=== PATIENT | female | born 1990 | race Caucasian/White ===

== ENCOUNTER 2016-08-12 22:08 | Emergency (ER) | payer OTHER ==
[~2016-08-12 22:08] MED LIST: ATORVASTATIN CA40 M1; METFORMIN HCL500 MG PO; QUETIAPINE FUMA25 M1 PO
[2016-08-13 01:23] VITALS: BP 138/98
== END 2016-08-13 01:23 | disposition home or self-care (01) ==
LOC: ED 22:08 → EDBD 22:08 → ED 08-13 01:23
DX: F41.0 Panic disorder [episodic paroxysmal anxiety] (principal); F22 Delusional disorders; F31.9 Bipolar disorder, unspecified

== ENCOUNTER 2016-09-11 23:57 | Emergency (ER) | payer OTHER ==
[2016-09-12 00:52] LABS: BASOPHIL % 0.3 % (0-2); PLATELET COUNT 310 x10^3mcL (130-400); RED CELL DISTRIBUTION WIDTH 14.1 % (11.5-14.5)
[2016-09-12 00:59] LABS: CALCIUM 9.2 mg/dL (8.5-10.1); CARBON DIOXIDE 27.8 mmol/L (21-32); CHLORIDE SERUM 104 mmol/L (98-107); CREATININE SERUM 0.6 mg/dL (0.6-1.0); GFR1 > 60 mL/min; GLUCOSE SERUM 91 mg/dL (74-106); POTASSIUM SERUM 3.6 mmol/L (3.5-5.1); SODIUM SERUM 143 mmol/L (136-145)
[2016-09-12 01:04] LABS: ALBUMIN 4.5 g/dL (3.4-5.0); ALKALINE PHOSPHATASE 68 U/L (46-116); ALT/SGPT 85 U/L (14-59); AST/SGOT 29 U/L (15-37); BILIRUBIN TOTAL 0.53 mg/dL (0.20-1.00); TOTAL PROTEIN, SERUM 7.8 g/dL (6.4-8.2)
[2016-09-12 01:50] LABS: UA SPECIFIC GRAVITY 1.015 (1.005-1.035); microscopic required? YES; urine erythrocyte TRACE (NEGATIVE)
[2016-09-12 02:32] VITALS: BP 137/96
== END 2016-09-12 02:32 | disposition home or self-care (01) ==
LOC: ED 23:57
PROVIDERS: Emergency Medicine
DX: N93.8 Other specified abnormal uterine and vaginal bleeding (principal); F31.9 Bipolar disorder, unspecified
CPT/HCPCS: 87491; 87591

== ENCOUNTER 2016-10-21 01:03 | Emergency (ER) | payer OTHER ==
[2016-10-21 01:26] VITALS: BP 129/94
[2016-10-21 02:21] LABS: BASOPHIL % 0.3 % (0-2); PLATELET COUNT 323 x10^3mcL (130-400); RED CELL DISTRIBUTION WIDTH 13.8 % (11.5-14.5)
[2016-10-21 02:23] LABS: CARBON DIOXIDE 20.6 mmol/L (21-32); CHLORIDE SERUM 99 mmol/L (98-107); CREATININE SERUM 0.5 mg/dL (0.6-1.0); GFR1 > 60 mL/min; GLUCOSE SERUM 73 mg/dL (74-106); POTASSIUM SERUM 4.9 mmol/L (3.5-5.1); SODIUM SERUM 135 mmol/L (136-145)
[2016-10-21 02:27] LABS: ALBUMIN 4.7 g/dL (3.4-5.0); ALKALINE PHOSPHATASE 91 U/L (46-116); ALT/SGPT 67 U/L (14-59); AST/SGOT 55 U/L (15-37)
[2016-10-21 02:31] LABS: AMPHETAMINE QUAL UR POSITIVE (NEG <=1000)
[2016-10-21 02:38] LABS: TOTAL PROTEIN, SERUM 8.8 g/dL (6.4-8.2)
[2016-10-21 02:45] LABS: CALCIUM 9.9 mg/dL (8.5-10.1)
== END 2016-10-21 05:48 | disposition home or self-care (01) ==
LOC: ED 01:03
PROVIDERS: Emergency Medicine
DX: F15.10 Other stimulant abuse, uncomplicated (principal); F31.9 Bipolar disorder, unspecified
CPT/HCPCS: G0480; J2060; J7030

== ENCOUNTER 2016-11-01 13:56 | Emergency (ER) | payer OTHER ==
[~2016-11-01] VITALS: Ht 144.8 cm; Wt 52.8 kg
[2016-11-01 14:01] VITALS: BP 131/96
== END 2016-11-01 15:38 | disposition home or self-care (01) ==
LOC: ED 13:56
DX: F41.9 Anxiety disorder, unspecified (principal)

== ENCOUNTER 2016-11-01 19:51 | Emergency (ER) | payer OTHER ==
[2016-11-01 20:46] LABS: BASOPHIL % 0.4 % (0-2); PLATELET COUNT 287 x10^3mcL (130-400); RED CELL DISTRIBUTION WIDTH 13.4 % (11.5-14.5)
[2016-11-01 20:56] LABS: CALCIUM 9.9 mg/dL (8.5-10.1); CHLORIDE SERUM 101 mmol/L (98-107); CREATININE SERUM 0.9 mg/dL (0.6-1.0); GFR1 > 60 mL/min; GLUCOSE SERUM 83 mg/dL (74-106); POTASSIUM SERUM 3.3 mmol/L (3.5-5.1); SODIUM SERUM 138 mmol/L (136-145)
[2016-11-01 21:00] LABS: ALBUMIN 4.4 g/dL (3.4-5.0); ALKALINE PHOSPHATASE 86 U/L (46-116); ALT/SGPT 183 U/L (14-59); AST/SGOT 122 U/L (15-37); BILIRUBIN TOTAL 0.49 mg/dL (0.20-1.00)
[2016-11-01 21:17] LABS: TOTAL PROTEIN, SERUM 8.6 g/dL (6.4-8.2)
[2016-11-01 21:41] VITALS: BP 130/79
== END 2016-11-01 21:41 | disposition home or self-care (01) ==
LOC: ED 19:51
PROVIDERS: Emergency Medicine
DX: F41.9 Anxiety disorder, unspecified (principal); F15.10 Other stimulant abuse, uncomplicated; F31.9 Bipolar disorder, unspecified
CPT/HCPCS: 36415

== ENCOUNTER 2016-11-26 21:52 | Emergency (ER) | payer OTHER ==
[2016-11-26 22:39] LABS: BASOPHIL % 0.3 % (0-2); PLATELET COUNT 287 x10^3mcL (130-400); RED CELL DISTRIBUTION WIDTH 13.9 % (11.5-14.5)
[2016-11-26 22:41] LABS: CALCIUM 10.1 mg/dL (8.5-10.1); CARBON DIOXIDE 20.2 mmol/L (21-32); CREATININE SERUM 1.2 mg/dL (0.6-1.0); POTASSIUM SERUM 3.6 mmol/L (3.5-5.1)
[2016-11-26 22:52] LABS: ALBUMIN 5.1 g/dL (3.4-5.0); BILIRUBIN TOTAL 1.5 mg/dL (0.20-1.00); TOTAL PROTEIN, SERUM 8.9 g/dL (6.4-8.2)
[2016-11-27 01:49] VITALS: BP 112/55
== END 2016-11-27 01:49 | disposition home or self-care (01) ==
LOC: ED 21:52
PROVIDERS: Emergency Medicine
DX: T43.621A Poisoning by amphetamines, accidental (unintentional), initial encounter (principal); Y92.89 Other specified places as the place of occurrence of the external cause
CPT/HCPCS: J1630; J7030

== ENCOUNTER 2016-11-28 03:36 | Emergency (ER) | payer OTHER ==
[2016-11-28 03:43] VITALS: BP 123/109
== END 2016-11-28 04:18 | disposition other institution (70) ==
LOC: ED 03:36
DX: F15.10 Other stimulant abuse, uncomplicated (principal)